=== PATIENT | male | born 1975 | race Two or more races ===

== ENCOUNTER 2020-09-08 01:41 | Inpatient (IN) | payer OTHER ==
[~2020-09-08] VITALS: Ht 177.8 cm; Wt 110.1 kg
[2020-09-08] MEDS ORDERED: ACETAMINOPHEN 325 MG TAB PO ONE (02:15)
[2020-09-08] MEDS ORDERED: SODIUM CHLORIDE 0.9% 1,000 ML IV ONE (04:00)
[2020-09-08] MEDS ORDERED: methylPREDNISolone SOD SUCC 125 MG/2 ML VL IV ONE (04:15)
[2020-09-08] MEDS ORDERED: AZITHROMYCIN 500MG/ 250ML 250 ML IV ONE (04:15)
[2020-09-08] MEDS ORDERED: DOXYCYCLINE 100MG/250ML 250 ML IV ONE (04:30)
[2020-09-08 04:38] LABS: Basophils # (auto) 0 10 ^3/uL (0-0.2); Basophils % (auto) 0.1 % (0.0-2.0); Eosinophils # (auto) 0 10 ^3/uL (0-0.8); Hematocrit 38.5 % (41.0-53.0); Hemoglobin 13.7 g/dL (13.5-17.5); Lymphocytes # (auto) 0.8 10 ^3/uL (0.4-5.4); Lymphocytes % (auto) 7.9 % (10.0-50.0); Mean Corpuscular Hgb Conc. 35.7 g/dL (32.0-36.0); Mean Corpuscular Volume 86.8 fL (80.0-100.0); Monocytes # (auto) 0.8 10 ^3/uL (0-1.3); Monocytes % (auto) 8.6 % (0.0-12.0); Neutrophils # (auto) 8.2 10 ^3/uL (1.6-8.6); Neutrophils % (auto) 83.4 % (37.0-80.0); Nucleated Red Blood Cells % 0.1 %; Red Blood Cells 4.44 10^6/uL (4.5-5.90); Red Cell Distribution Width 13.1 % (11.8-14.3); White Blood Cell 9.8 10^3/uL (4.4-10.8)
[2020-09-08 04:54] LABS: Albumin 3.2 g/dL (3.4-5.0); Anion Gap 7 (5-15); Blood Urea Nitrogen 10 mg/dL (7-18); Calcium 8.9 mg/dL (8.5-10.1); Carbon Dioxide 26 mmol/L (21-32); Chloride 102 mmol/L (98-107); Glucose 128 mg/dL (74-106); Potassium 3.1 mmol/L (3.5-5.1); Sodium 135 mmol/L (136-145)
[2020-09-08 05:01] LABS: Alanine Aminotransferase 196 U/L (16-61); Alkaline Phosphatase 161 U/L (45-117); Aspartate Aminotransferase 113 U/L (15-37); BUN/Creatinine Ratio 11.8; Bilirubin, Total 0.5 mg/dL (0.2-1.0); GFR African American 125 mL/min; GFR Non-African American 104 mL/min; Total Protein 7.9 g/dL (6.4-8.2)
[2020-09-08] MEDS ORDERED: ONDANSETRON HCL 4 MG/2 ML VIAL IV PRN (07:00)
[2020-09-08] MEDS ORDERED: DOCUSATE SOD 100 MG CAP PO PRN (07:00)
[2020-09-08] MEDS ORDERED: NITROGLYCERIN 0.4 MG SL TAB SL PRN (07:00)
[2020-09-08] MEDS ORDERED: MORPHINE SULFATE INJECTION 2 MG/ML SYRG IV PRN (07:00)
[2020-09-08] MEDS ORDERED: POTASSIUM CHL 20 Meq TABLET PO ONE (07:00)
[2020-09-08] MEDS ORDERED: ACETAMINOPHEN 500 MG TAB PO PRN (07:00)
[2020-09-08] MEDS ORDERED: HYDROcodone-ACET 5/325MG TAB PO PRN (07:00)
[2020-09-08] MEDS: ZINC SULFATE 220mg CAP or TAB PO SCH (09:03)
[2020-09-08] MEDS: CHOLECALCIFEROL (VITD3) 2,000 UNIT CAP/TAB PO SCH (09:04)
[2020-09-08] MEDS: ASCORBIC ACID 1,000 MG TAB PO SCH (09:04)
[2020-09-08] MEDS: MULTIPLE VITAMIN TAB PO SCH (09:04)
[2020-09-08] MEDS: DexAMETHasone SOD PHOS 10MG/1ML VIAL INJ IV SCH (09:15)
[2020-09-08] MEDS: DOXYCYCLINE 100MG/250ML 250 ML IV SCH ×2 (09:15→21:46)
[2020-09-08] MEDS ORDERED: ENOXAPARIN SOD 40 MG/0.4 ML SYRINGE SC SCH (10:00)
[2020-09-08] MEDS ORDERED: PANTOPRAZOLE 40 MG/10 ML VIAL INJ IV SCH (10:00)
[2020-09-08] MEDS ORDERED: SOD CHL 0.9%/ KCL 40MEQ 1,000 ML IV ONE (11:30)
[2020-09-08] MEDS ORDERED: REMDESIVIR PER PHARMACY 0 ML IV SCH (12:00)
[2020-09-08] MEDS: BUDESONIDE (INHALATION) 180 MCG IH IN SCH ×3 (15:30→21:46)
[2020-09-08] MEDS ORDERED: REMDESIVIR 200 MG in NS 210ml LOADING DOSE ADULT IV ONE (16:00)
[2020-09-08] MEDS: FAMOTIDINE 20 MG TAB PO SCH (21:46)
[2020-09-08] MEDS: ENOXAPARIN SOD 40 MG/0.4 ML SYRINGE SC SCH (21:46)
[2020-09-09 06:26] LABS: Basophils # (auto) 0 10 ^3/uL (0-0.2); Eosinophils # (auto) 0 10 ^3/uL (0-0.8); Lymphocytes % (auto) 8.8 % (10.0-50.0); Mean Corpuscular Hemoglobin 29.8 pg (28.0-32.0); Mean Corpuscular Hgb Conc. 34.1 g/dL (32.0-36.0); Mean Corpuscular Volume 87.2 fL (80.0-100.0); Neutrophils # (auto) 9.6 10 ^3/uL (1.6-8.6); Neutrophils % (auto) 82.2 % (37.0-80.0); Nucleated Red Blood Cells % 0.2 %; Red Blood Cells 4.36 10^6/uL (4.5-5.90); Red Cell Distribution Width 13.2 % (11.8-14.3); White Blood Cell 11.7 10^3/uL (4.4-10.8)
[2020-09-09 06:53] LABS: Potassium 3.7 mmol/L (3.5-5.1)
[2020-09-09 07:02] LABS: Albumin 3.1 g/dL (3.4-5.0); BUN/Creatinine Ratio 14.3; Bilirubin, Total 0.5 mg/dL (0.2-1.0); Calcium 8.9 mg/dL (8.5-10.1); Total Protein 7.8 g/dL (6.4-8.2)
[2020-09-09] MEDS: ENOXAPARIN SOD 40 MG/0.4 ML SYRINGE SC SCH ×2 (10:07→21:43)
[2020-09-09] MEDS: CHOLECALCIFEROL (VITD3) 2,000 UNIT CAP/TAB PO SCH (10:07)
[2020-09-09] MEDS: DexAMETHasone SOD PHOS 10MG/1ML VIAL INJ IV SCH (10:07)
[2020-09-09] MEDS: ASCORBIC ACID 1,000 MG TAB PO SCH (10:07)
[2020-09-09] MEDS: FAMOTIDINE 20 MG TAB PO SCH ×2 (10:07→21:43)
[2020-09-09] MEDS: ZINC SULFATE 220mg CAP or TAB PO SCH (10:07)
[2020-09-09] MEDS: MULTIPLE VITAMIN TAB PO SCH (10:07)
[2020-09-09] MEDS: DOXYCYCLINE 100MG/250ML 250 ML IV SCH ×2 (10:08→21:43)
[2020-09-09] MEDS: BUDESONIDE (INHALATION) 180 MCG IH IN SCH ×2 (10:46→19:23)
[2020-09-09] MEDS: ALBUTEROL SULF HFA 90MCG INH 200DOSE IN PRN ×2 (10:46→19:23)
[2020-09-09] MEDS ORDERED: FUROSEMIDE 40 MG/4 ML VIAL IV ONE (13:00)
[2020-09-09] MEDS ORDERED: POTASSIUM CHL 20 Meq TABLET PO ONE (13:00)
[2020-09-09] MEDS ORDERED: LORazepam 0.5 MG TAB PO PRN (13:00)
[2020-09-09] MEDS ORDERED: ERGOCALCIFEROL 50,000 UNIT(1.25MG) CAP PO SCH (13:00)
[2020-09-09 13:44] LABS: Hepatitis B Surface Antibody Negative
[2020-09-09 14:23] LABS: Hepatitis A Total Antibody Positive
[2020-09-09] MEDS ORDERED: REMDESIVIR 100 MG in SODIUM CHL 0.9% 250 ML IV SCH (15:00)
[2020-09-09] MEDS ORDERED: ACETAMINOPHEN 500 MG TAB PO ONE (18:40)
[2020-09-09 20:51] LABS: Amphetamine Screen, Urine NEGATIVE (NEGATIVE); Barbiturate Scree,Urine NEGATIVE (NEGATIVE); Benzodiazephine Screen, Urine NEGATIVE (NEGATIVE); Cannabinoid Screen, Urine NEGATIVE (NEGATIVE); Cocaine Screen, Urine NEGATIVE (NEGATIVE); Opiate Scree,Urine NEGATIVE (NEGATIVE); Phencyclidine Screen, Urine NEGATIVE (NEGATIVE)
[2020-09-09 21:05] LABS: Alcohol, Urine < 3.0 mg/dL (0-10)
[2020-09-09 22:09] LABS: Hepatitis B Core Total AB Negative; Hepatitis B Surface Antigen Negative (Negative)
[2020-09-09 22:10] LABS: Hepatitis C Antibody Negative (Negative)
[2020-09-10 02:42] VITALS: BP 109/80
[2020-09-10 06:57] LABS: Basophils # (auto) 0 10 ^3/uL (0-0.2); Basophils % (auto) 0.1 % (0.0-2.0); Eosinophils # (auto) 0 10 ^3/uL (0-0.8); Hematocrit 41.6 % (41.0-53.0); Hemoglobin 14.3 g/dL (13.5-17.5); Lymphocytes # (auto) 1.7 10 ^3/uL (0.4-5.4); Lymphocytes % (auto) 16.5 % (10.0-50.0); Mean Corpuscular Hemoglobin 30.2 pg (28.0-32.0); Mean Corpuscular Hgb Conc. 34.5 g/dL (32.0-36.0); Mean Corpuscular Volume 87.6 fL (80.0-100.0); Monocytes # (auto) 0.8 10 ^3/uL (0-1.3); Monocytes % (auto) 8.1 % (0.0-12.0); Neutrophils # (auto) 7.8 10 ^3/uL (1.6-8.6); Neutrophils % (auto) 75.3 % (37.0-80.0); Nucleated Red Blood Cells % 0.1 %; Red Blood Cells 4.74 10^6/uL (4.5-5.90); White Blood Cell 10.3 10^3/uL (4.4-10.8)
[2020-09-10] MEDS: BUDESONIDE (INHALATION) 180 MCG IH IN SCH ×2 (07:59→19:50)
[2020-09-10] MEDS: ALBUTEROL SULF HFA 90MCG INH 200DOSE IN PRN ×2 (07:59→19:50)
[2020-09-10 08:00] VITALS: BP 92/57
[2020-09-10 08:54] LABS: Potassium 3.8 mmol/L (3.5-5.1)
[2020-09-10 09:32] LABS: Albumin 3.3 g/dL (3.4-5.0); BUN/Creatinine Ratio 20.4; Bilirubin, Total 0.5 mg/dL (0.2-1.0); CRP High Sensitivity 5.3 mg/dL (< 0.3); Calcium 9.3 mg/dL (8.5-10.1); Magnesium 2.4 mg/dL (1.6-2.6); Total Protein 8.2 g/dL (6.4-8.2)
[2020-09-10] MEDS: FUROSEMIDE 20 MG/2 ML VIAL IV SCH (10:00)
[2020-09-10] MEDS: DexAMETHasone SOD PHOS 10MG/1ML VIAL INJ IV SCH (10:08)
[2020-09-10] MEDS: FAMOTIDINE 20 MG TAB PO SCH ×2 (10:08→21:42)
[2020-09-10] MEDS: ZINC SULFATE 220mg CAP or TAB PO SCH (10:08)
[2020-09-10] MEDS: MULTIPLE VITAMIN TAB PO SCH (10:08)
[2020-09-10] MEDS: POTASSIUM CHL 10 Meq TABLET PO SCH (10:08)
[2020-09-10] MEDS: DOXYCYCLINE 100MG/250ML 250 ML IV SCH ×2 (10:08→21:42)
[2020-09-10] MEDS: CHOLECALCIFEROL (VITD3) 2,000 UNIT CAP/TAB PO SCH (10:08)
[2020-09-10] MEDS: ASCORBIC ACID 1,000 MG TAB PO SCH (10:08)
[2020-09-10] MEDS: ENOXAPARIN SOD 40 MG/0.4 ML SYRINGE SC SCH ×2 (10:09→21:43)
[2020-09-10 16:00] VITALS: BP 113/69
[2020-09-10] MEDS ORDERED: REMDESIVIR 100 MG in SODIUM CHL 0.9% 250 ML IV SCH (17:00)
[2020-09-11] VITALS: BP 109/77
[2020-09-11 08:00] VITALS: BP 100/66
[2020-09-11] MEDS: DexAMETHasone SOD PHOS 10MG/1ML VIAL INJ IV SCH (09:03)
[2020-09-11] MEDS: POTASSIUM CHL 10 Meq TABLET PO SCH (09:06)
[2020-09-11] MEDS: DOXYCYCLINE 100MG/250ML 250 ML IV SCH ×2 (09:06→20:51)
[2020-09-11] MEDS: ZINC SULFATE 220mg CAP or TAB PO SCH (09:06)
[2020-09-11] MEDS: FAMOTIDINE 20 MG TAB PO SCH ×2 (09:07→20:51)
[2020-09-11] MEDS: MULTIPLE VITAMIN TAB PO SCH (09:07)
[2020-09-11] MEDS: ENOXAPARIN SOD 40 MG/0.4 ML SYRINGE SC SCH ×2 (09:07→20:51)
[2020-09-11] MEDS: FUROSEMIDE 20 MG/2 ML VIAL IV SCH (09:07)
[2020-09-11] MEDS: ASCORBIC ACID 1,000 MG TAB PO SCH (09:07)
[2020-09-11] MEDS: CHOLECALCIFEROL (VITD3) 2,000 UNIT CAP/TAB PO SCH (09:07)
[2020-09-11 09:31] LABS: Potassium 3.6 mmol/L (3.5-5.1)
[2020-09-11 09:44] LABS: Albumin 2.9 g/dL (3.4-5.0); BUN/Creatinine Ratio 17.9; Bilirubin, Direct 0.2 mg/dL (0-0.2); Bilirubin, Total 0.5 mg/dL (0.2-1.0); Total Protein 7.5 g/dL (6.4-8.2)
[2020-09-11] MEDS: BUDESONIDE (INHALATION) 180 MCG IH IN SCH ×2 (09:55→20:28)
[2020-09-11] MEDS: ALBUTEROL SULF HFA 90MCG INH 200DOSE IN PRN ×2 (09:55→20:28)
[2020-09-11 16:00] VITALS: BP 103/69
[2020-09-11] MEDS ORDERED: guaiFENesin-DM 100/10mg/5ml SYR PO PRN (16:45)
[2020-09-12] VITALS: BP 120/78
[2020-09-12 07:55] VITALS: BP 95/60
[2020-09-12] MEDS: DexAMETHasone SOD PHOS 10MG/1ML VIAL INJ IV SCH (08:35)
[2020-09-12] MEDS: POTASSIUM CHL 10 Meq TABLET PO SCH (08:36)
[2020-09-12] MEDS: DOXYCYCLINE 100MG/250ML 250 ML IV SCH ×2 (08:36→22:00)
[2020-09-12] MEDS: ZINC SULFATE 220mg CAP or TAB PO SCH (08:36)
[2020-09-12] MEDS: CHOLECALCIFEROL (VITD3) 2,000 UNIT CAP/TAB PO SCH (08:37)
[2020-09-12] MEDS: FAMOTIDINE 20 MG TAB PO SCH ×2 (08:37→22:00)
[2020-09-12] MEDS: MULTIPLE VITAMIN TAB PO SCH (08:37)
[2020-09-12] MEDS: ASCORBIC ACID 1,000 MG TAB PO SCH (08:37)
[2020-09-12] MEDS: ENOXAPARIN SOD 40 MG/0.4 ML SYRINGE SC SCH ×2 (08:37→22:00)
[2020-09-12] MEDS: FUROSEMIDE 20 MG/2 ML VIAL IV SCH (10:00)
[2020-09-12] MEDS: BUDESONIDE (INHALATION) 180 MCG IH IN SCH (10:00)
[2020-09-12 11:23] LABS: Hemoglobin 13.5 g/dL (13.5-17.5)
[2020-09-12 11:24] LABS: Hematocrit 38.3 % (41.0-53.0); Mean Corpuscular Hemoglobin 30.7 pg (28.0-32.0); Mean Corpuscular Hgb Conc. 35.3 g/dL (32.0-36.0); Mean Corpuscular Volume 86.8 fL (80.0-100.0); Red Blood Cells 4.41 10^6/uL (4.5-5.90); White Blood Cell 16.9 10^3/uL (4.4-10.8)
[2020-09-12 11:36] LABS: Albumin 3.1 g/dL (3.4-5.0); Basophils % (manual) 0 (0.0-2.0); Blast Cells 0; Eosinophils % (manual) 0 (0-7); Magnesium 2.3 mg/dL (1.6-2.6); Potassium 3.6 mmol/L (3.5-5.1); Promyelocytes % 0; Reactive Lymphocytes 0
[2020-09-12 11:46] LABS: BUN/Creatinine Ratio 19.3; Bilirubin, Direct 0.2 mg/dL (0-0.2); Bilirubin, Total 0.5 mg/dL (0.2-1.0); CRP High Sensitivity 3.66 mg/dL (< 0.3); Total Protein 7.7 g/dL (6.4-8.2)
[2020-09-12] MEDS ORDERED: ALBUAER3 IN (12:31)
[2020-09-12] MEDS ORDERED: FAMO20TA10 PO (12:31)
[2020-09-12] MEDS ORDERED: CHOL1CAP47 PO (12:31)
[2020-09-12] MEDS ORDERED: ASPI-378 PO (12:31)
[2020-09-12] MEDS ORDERED: DOXY-286 PO (12:31)
[2020-09-12] MEDS ORDERED: ASCO10003 PO (12:31)
[2020-09-12] MEDS ORDERED: ZINC220T6 PO (12:31)
[2020-09-12] MEDS ORDERED: METH4PAK PO (12:31)
[2020-09-12] MEDS ORDERED: BUDE2SUS3 IN (12:31)
[2020-09-12 14:00] LABS: Band Neutrophils % (manual) 4; Lymphocytes % (manual) 8 (10.0-50.0); Metamyelocytes % 1; Monocytes % (manual) 6 (0-12); Myelocytes % 1
[2020-09-12 16:00] VITALS: BP 105/71
[2020-09-12] MEDS: ALBUTEROL SULF HFA 90MCG INH 200DOSE IN PRN (21:20)
[2020-09-13] VITALS: BP 104/71
[2020-09-13 08:00] VITALS: BP 87/44
[2020-09-13] MEDS: FUROSEMIDE 20 MG/2 ML VIAL IV SCH (09:36)
[2020-09-13] MEDS: DexAMETHasone SOD PHOS 10MG/1ML VIAL INJ IV SCH (09:36)
[2020-09-13] MEDS: ZINC SULFATE 220mg CAP or TAB PO SCH (09:37)
[2020-09-13] MEDS: CHOLECALCIFEROL (VITD3) 2,000 UNIT CAP/TAB PO SCH (09:37)
[2020-09-13] MEDS: MULTIPLE VITAMIN TAB PO SCH (09:38)
[2020-09-13] MEDS: ENOXAPARIN SOD 40 MG/0.4 ML SYRINGE SC SCH (09:38)
[2020-09-13] MEDS: FAMOTIDINE 20 MG TAB PO SCH (09:38)
[2020-09-13] MEDS: ASCORBIC ACID 1,000 MG TAB PO SCH (09:38)
[2020-09-13] MEDS: POTASSIUM CHL 10 Meq TABLET PO SCH (09:39)
[2020-09-13] MEDS: ALBUTEROL SULF HFA 90MCG INH 200DOSE IN PRN (10:16)
[2020-09-13] MEDS: BUDESONIDE (INHALATION) 180 MCG IH IN SCH (10:16)
[2020-09-13 12:36] VITALS: BP 114/73
[2020-09-13] MEDS ORDERED: ATO40T PO (13:52)
[2020-09-13] MEDS ORDERED: POTA10TA51 PO (14:05)
[2020-09-13] MEDS ORDERED: FURO1TAB33 PO (14:05)
== END 2020-09-13 14:53 | disposition home or self-care (01) | DRG 720 ==
LOC: ER 01:41 → EDBD 01:41 → TELE 01:42 → TELE-EAST 09-09 23:58
PROVIDERS: ADMIT Nurse Practitioner Family; ATTEND Internal Medicine
PROC: XW033E5 Introduction of Remdesivir Anti-infective into Peripheral Vein, Percutaneous Approach, New Technology Group 5 (ICD-10-PCS; principal; 2020-09-08)
DX: A41.89 Other specified sepsis (principal); U07.1 COVID-19; J96.01 Acute respiratory failure with hypoxia; E87.6 Hypokalemia; J01.00 Acute maxillary sinusitis, unspecified; R73.9 Hyperglycemia, unspecified; R73.03 Prediabetes; Z68.35 Body mass index [BMI] 35.0-35.9, adult; D68.59 Other primary thrombophilia; E66.01 Morbid (severe) obesity due to excess calories; E55.9 Vitamin D deficiency, unspecified; F41.1 Generalized anxiety disorder; K76.0 Fatty (change of) liver, not elsewhere classified; K75.9 Inflammatory liver disease, unspecified; T38.0X5A Adverse effect of glucocorticoids and synthetic analogues, initial encounter; E87.1 Hypo-osmolality and hyponatremia; J12.82 Pneumonia due to coronavirus disease 2019
CPT/HCPCS: 36415; 71045; 76705; 80053; 80061; 80076; 80307; 82306; 82728; 83036; 83615; 83735; 84443; 84484; 85007; 85025; 85027; 85379; 86141; 86704; 86706; 86708; 86803; 86850; 86900; 86901; 87040; 87340; 87426; 93005; 94640; 96365; 96366; 96375; C9113; G0378; J1100; J3490